=== PATIENT | male | born 1980 | race Caucasian/White ===

== ENCOUNTER 2021-03-20 11:19 | Outpatient (CLI) | payer BC, SELFPAY ==
--- NOTE | ~2021-03-20 | US_ITS ---
EXAMINATION: US scrotum doppler DATE: 03/20/2021 12:37 INDICATION: Other nonspecific inflammatory disorders of the testis with palpable abnormality TECHNIQUE: Testicular sonogram utilizing grayscale and Doppler COMPARISON: None. FINDINGS: The right testis measures 5.0 x 2.7 x 4.5 cm. The left testis measures 4.9 x 2.4 x 2.9 cm. Symmetric normal grayscale appearance to both testes. There is normal vascular flow to both testes. A couple ti ny calcifications along the periphery of the right testis most consistent with scrotal pearls. The ri ght epididymis is normal with normal vascular flow. The left epididymis is normal with normal vascula r flow. Small bilateral hydroceles. No varicocele. IMPRESSION: 1. Normal testes and epididymides. 2. Small bilateral hydroceles and a couple tiny calcified likely scrotal pearls peripheral to the nor mal left testis. Reviewed, dictated and finalized at location A. 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 Normal testes and epididymides. 2. Small bilateral hydroceles and a couple tiny calcified likely scrotal pearls peripheral to the normal left testis.
== END 2021-03-20 11:20 | disposition home or self-care (01) ==
LOC: ANHIMG 11:24
PROVIDERS: PCP Internal Medicine; Visit Provider Internal Medicine
DX: N44.8 Other noninflammatory disorders of the testis (principal); N43.3 Hydrocele, unspecified
CPT/HCPCS: 76870; 93976

== ENCOUNTER → 2022-02-02 07:31 | Outpatient (CLI) | payer BC, SELFPAY ==
--- NOTE | ~2022-02-02 | XR_ITS ---
XR chest 2V INDICATION: Wheezing. History of asthma. TECHNIQUE: 2 view chest. FINDINGS: No prior studies for comparison. There is mild bilateral interstitial prominence and peribronchial cuffing. There is no focal consoli dation, pleural effusion, or pneumothorax. The cardiomediastinal silhouette is normal. IMPRESSION: 1. Findings most consistent with bronchiolitis versus an atypical or viral pneumonia. Reviewed, dictated and finalized at location D. IMPRESSION: 1. Findings most consistent with bronchiolitis versus an atypical or viral pne [facility].
== END ==
PROVIDERS: PCP Internal Medicine; Visit Provider Internal Medicine
DX: J45.909 Unspecified asthma, uncomplicated (principal); R91.8 Other nonspecific abnormal finding of lung field
CPT/HCPCS: 71046

== ENCOUNTER 2023-02-24 11:16 | Emergency (ER) | payer BC, SELFPAY ==
--- NOTE | ~2023-02-24 | XR_ITS ---
EXAMINATION: XR foot LT 2V DATE: 02/24/2023 11:31 INDICATION: Left great toe swelling and pain. TECHNIQUE: 4 views of left foot were obtained. COMPARISON: None. FINDINGS: Bone alignment is normal. No fracture. There is mild osteoarthritis of first metatarsophala ngeal joint. There is mild midfoot osteoarthritis. There is an enthesophyte at posterior aspect of ca lcaneal tuberosity. IMPRESSION: 1. Mild polyarticular osteoarthritis. Reviewed, dictated and finalized at location A. 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
[2023-02-24 11:17] VITALS: BP 150/93; PULSE 83; RESP 18; TEMP 36.4; O2SAT 100
[2023-02-24 11:53] LABS: Basophils Absolute Auto 0.1 K/mm3 (0.0-0.1); Eosinophils Absolute Auto 0.2 K/mm3 (0-0.3); Eosinophils Percent Auto 2.7 % (0-4.4); Hematocrit 42.7 % (42.0-52.0); Hemoglobin 14.2 g/dL (14.0-18.0); Immature Granulocyte Absolute 0.02 K/mm3 (0.00-0.031); Immature Granulocyte Percent A 0.3 % (0-0.5); Lymphocytes Absolute Auto 2.03 K/mm3 (0.9-3.2); Lymphocytes Percent Auto 34.1 % (18.3-44.2); Mean Corpuscular HGB Conc 33.3 g/dl (32-36); Mean Corpuscular Hemoglobin 31.8 pg (26-34); Mean Corpuscular Volume 95.5 fl (80-100); Mean Platelet Volume 11.3 fl (7.4-10.4); Monocytes Absolute Auto 0.6 K/mm3 (0.1-0.6); Monocytes Percent Auto 9.6 % (2.6-8.5); Neutrophils Absolute Auto 3.1 K/mm3 (1.3-6.7); Neutrophils Percent Auto 52.3 % (45.5-73.1); Platelet Count Result 182 k/mm3 (150-375); Red Blood Count 4.47 M/mm3 (4.6-6.20); Red Cell Distribution Width 12.6 % (11.5-14.5)
[2023-02-24 12:07] LABS: Alanine Aminotransferase 31 U/L (6-50); Albumin Level 4.7 g/dL (3.5-5.1); Alkaline Phosphatase 85 U/L (38-126); Anion Gap 11 mmol/L (8-16); Aspartate Amino Transferase 24 U/L (17-59); Bilirubin,Total 0.7 mg/dL (0.2-1.3); Blood Urea Nitrogen 12 mg/dL (9-20); Calcium 9.5 mg/dL (8.4-10.2); Carbon Dioxide 27 mmol/L (22-30); Chloride 105 mmol/L (98-107); Estimated CRCL calculation 92 ml/min; Estimated Glomerular Filt Rate > 60; Glucose 86 mg/dL (65-110); Potassium 3.8 mmol/L (3.4-5.0); Sodium 143 mmol/L (137-145); Uric Acid 5.4 mg/dL (3.5-8.5)
[2023-02-24 12:50] VITALS: BP 119/86; PULSE 82; RESP 20; O2SAT 98
--- NOTE | 2023-02-24 13:11 | ED.GENADULT ---
HPI - General Adult General Chief complaint: Extremity Problem,Nontraumatic Stated complaint: L 1st toe pain Time Seen by Provider: 02/24/23 12:52 History of Present Illness HPI narrative: Jonathan Gomes is a 42 y/o male who presents today with reports of having pain to the bottom of his left foot that started a couple days ago, denies any known trauma, reports the pain has improved today since he has kept weight off of it. Related Data Allergies Allergy/AdvReac Type Severity Reaction Status Date / Time triamcinolone Allergy Unknown Disorientat Verified 06/14/15 14:21 ed zolpidem Allergy Unknown Verified 03/24/12 08:41 ZOLPIDEM TARTRATE Allergy Mild FACIAL Uncoded 07/10/13 06:38 SWELLING Review of Systems Review of Systems: CONSTITUTIONAL: Denies fever, chills, or sweats. EYES: Denies visual changes, redness, or discharge. ENT: Denies rhinorrhea, congestion, sore throat, or otalgia. CARDIOVASCULAR: Denies chest pain, palpitations, or edema. RESPIRATORY: Denies cough or dyspnea. GASTROINTESTINAL: Denies abdominal pain, nausea, vomiting, or diarrhea. GENITOURINARY: Denies dysuria or hematuria. SKIN: Denies rash or itching. MUSCULOSKELETAL: Denies back pain, Complains of pain to to the bottom of his left foot / left great toe for about 2 days NEUROLOGIC: Denies headache, numbness, dizziness, or weakness. PSYCHIATRIC: Denies anxiety or depression. PMFSH Social History Social History Smoking status: Never smoker Alcohol intake: current Exam Narrative: GENERAL: Well-appearing, well-nourished, and in no acute distress. HEAD: Normocephalic, atraumatic. EYES: PERRLA and EOMI. ENT: Nares clear, no rhinorrhea or epistaxis. Mucous membranes moist. Oropharynx without tonsillar hypertrophy exudate or other lesions. NECK: Supple. No adenopathy or masses. No carotid bruits or JVD CHEST: Clear to auscultation. No respiratory distress. No wheezes rales or rhonchi HEART: Regular rate and rhythm. No murmur heard. Normal peripheral pulses. ABDOMEN: Soft, nontender, nondistended, normal active bowel sounds. EXTREMITIES: Normal range of motion. No edema. SKIN: Warm, dry, no rash. NEURO: No focal deficits. Alert and oriented x3. PSYCH: Normal mood and affect. Course Vital Signs Vital signs: Vital Signs Temperature 36.4 C 02/24/23 11:17 Pulse Rate 83 02/24/23 11:17 Respiratory Rate 18 02/24/23 11:17 Blood Pressure 150/93 H 02/24/23 11:17 Pulse Oximetry 100 02/24/23 11:17 Oxygen Delivery Room Air 02/24/23 11:17 Temperature 36.4 C 02/24/23 11:17 Pulse Rate 82 02/24/23 12:50 Respiratory Rate 20 02/24/23 12:50 Blood Pressure 119/86 02/24/23 12:50 Pulse Oximetry 98 02/24/23 12:50 Oxygen Delivery Room Air 02/24/23 11:17 Medical Decision Making MDM Narrative Medical decision making narrative: On exam pt points to the bottom of his left foot proximal to the great toe. He states pain is improved since he has stayed off of it pain started about 2 days ago and was more severe yesterday Denies any known trauma/ injury Pulses present Normal cap refill / ROM intact No obvious deformity/ erythema/ wounds/ rashes/ warts/ signs of infection evident on exam CBC- stable CMP - stable URic Acid - negative X ray of foot - showing osteoarthritis Discussed with pt that we will continue supportive conservative treatment / nehal wrap/ keep weight off / RICE therapy and follow up with podiatry for further care. Patient agrees with plan Medical Records Medical records reviewed: Yes I reviewed the external patient's medical records. Vital Signs Vital Signs: Vital Signs Temperature 36.4 C 02/24/23 11:17 Pulse Rate 83 02/24/23 11:17 Respiratory Rate 18 02/24/23 11:17 Blood Pressure 150/93 H 02/24/23 11:17 Pulse Oximetry 100 02/24/23 11:17 Oxygen Delivery Room Air 02/24/23 11:17 Tem
[2023-02-24] MEDS: NAPROXEN 500 MG TABLET PO (13:32)
== END 2023-02-24 14:00 | disposition home or self-care (01) ==
PROVIDERS: Emergency Medicine; Emergency Provider Nurse Practitioner Family; PCP Internal Medicine
DX: S96.912A Strain of unspecified muscle and tendon at ankle and foot level, left foot, initial encounter (principal); M19.072 Primary osteoarthritis, left ankle and foot; X58.XXXA Exposure to other specified factors, initial encounter
CPT/HCPCS: 36415; 73620; 80053; 84550; 85025; 99283; A9270

== ENCOUNTER 2023-08-15 08:18 | Outpatient (CLI) | payer BC, SELFPAY ==
--- NOTE | ~2023-08-15 | US_ITS ---
EXAMINATION: US scrotum doppler DATE: 08/15/2023 08:54 INDICATION: Pain in right testicle. TECHNIQUE: Grayscale and Doppler ultrasound images of the testes were obtained. COMPARISON: Ultrasound 03/20/2021 FINDINGS: The right testis measures 5.0 x 2.6 x 4.1 cm. The left testis measures 4.9 x 2.6 x 3.8 cm. There is normal vascular flow to both testes. The right epididymis is normal with normal vascular ian w. The left epididymis is normal with normal vascular flow. There is no hydrocele. There are bilatera l varicoceles. IMPRESSION: 1. No specific etiology for the patient's symptoms. Reviewed, dictated and finalized at location A.
== END 2023-08-15 08:19 ==
PROVIDERS: PCP Internal Medicine; Visit Provider Internal Medicine
DX: N50.811 Right testicular pain (principal)
CPT/HCPCS: 76870; 93976